=== PATIENT | female | born 1985 | race Caucasian/White ===

== ENCOUNTER 2018-04-24 11:46 | Emergency (ER) | payer OTHER ==
[2018-04-24 12:24] VITALS: BP 127/76; PULSE 86; RESP 18; TEMP 99; O2SAT 100
--- NOTE | 2018-04-24 13:29 | C.PDOC ---
History Of Present Illness The patient reports that she has been experiencing 4 day history of pain to the left lower pre molars. The patient rpeorts that she has been taking percocets without relief. Denies fever, trauma, swelling, or drainage. Time Seen by Provider: 04/24/18 12:40 Chief Complaint (Nursing): Dental Pain History Per: Patient History/Exam Limitations: no limitations Onset/Duration Of Symptoms: Persistent Current Symptoms Are (Timing): Still Present Severity: Moderate Pain Scale Rating Of: 7 Quality: Positive for: Sharp Recent travel outside of the [place]: No Past Medical History Reviewed: Historical Data, Nursing Documentation, Vital Signs Vital Signs: Last Vital Signs Temp 99 F 04/24/18 12:21 Pulse 86 04/24/18 12:21 Resp 18 04/24/18 12:21 BP 127/76 04/24/18 12:21 Pulse Ox 100 04/24/18 12:21 - Medical History PMH: No Chronic Diseases Family History: States: No Known Family Hx - Social History Hx Alcohol Use: No Hx Substance Use: No Review Of Systems Constitutional: Negative for: Fever, Weakness Eyes: Negative for: Eyelid Inflammation, Redness ENT: Positive for: Other (dental pain) Cardiovascular: Negative for: Chest Pain, Edema Respiratory: Negative for: Cough Gastrointestinal: Negative for: Nausea, Vomiting, Abdominal Pain Genitourinary: Negative for: Dysuria Musculoskeletal: Negative for: Neck Pain Skin: Negative for: Rash, Lesions Neurological: Negative for: Weakness, Numbness Physical Exam - Physical Exam Appears: Non-toxic, No Acute Distress Skin: Normal Color, Warm, No Rash Head: Atraumatic, Normacephalic Eye(s): bilateral: Normal Inspection, PERRL, EOMI Ear(s): Bilateral: Normal Oral Mucosa: Moist, No Drooling, No Trismus Tongue: Normal Appearing, No Swelling Lips: Normal Appearing, No Swelling Teeth: Caries, No Loose, Other (left lower 2nd and 3rd pre molar tenderness and tooth is cracked) Gingiva: No Abscess Throat: No Erythema, No Exudate Neck: Normal ROM, No Midline Cervical Tenderness, No Paracervical Tenderness, Supple Cardiovascular: Rhythm Regular, No Friction Rub Respiratory: Normal Breath Sounds, No Wheezing Back: No CVA Tenderness Neurological/Psych: Oriented x3, Normal Speech, Normal Motor Gait: Steady ED Course And Treatment O2 Sat by Pulse Oximetry: 100 (on Ra) Pulse Ox Interpretation: Normal Medical Decision Making Medical Decision Making: Amoxil and Motrin PO ordered. Disposition - [facility] Disposition: HOME/ ROUTINE Disposition Time: 13:28 Condition: GOOD Additional Instructions: Follow up with the dental clinic within 1-2 days. Return of worsened Prescriptions: Amoxicillin [Amoxil 500 mg Cap] 500 mg PO TID #29 cap Ibuprofen [Motrin Tab] 800 mg PO TID #20 tab Instructions: Tooth Decay, Adult (DC), Dental Pain (DC) Forms: [employer] (Latvian) - Clinical Impression Clinical Impression: Dental caries
== END 2018-04-24 13:35 | disposition home or self-care (01) ==
LOC: C.ER 11:46
DX: K02.9 Dental caries, unspecified (principal)